=== PATIENT | female | born 1965 | race African-American/Black ===

== ENCOUNTER 2016-09-26 14:12 | Day surgery (SDC) | END 2016-09-26 16:24 | disposition home or self-care (01) | DX: D12.8 Benign neoplasm of rectum (principal); D12.2 Benign neoplasm of ascending colon; D12.0 Benign neoplasm of cecum; K63.5 Polyp of colon; R19.5 Other fecal abnormalities; K64.4 Residual hemorrhoidal skin tags; K64.8 Other hemorrhoids; E78.5 Hyperlipidemia, unspecified; M19.90 Unspecified osteoarthritis, unspecified site; Z88.2 Allergy status to sulfonamides; Z88.0 Allergy status to penicillin; Z88.5 Allergy status to narcotic agent | CPT/HCPCS: 45380; 88305; Z7610 ==

== ENCOUNTER 2016-09-27 10:42 | Emergency (ER) | payer OTHER ==
[~2016-09-27] VITALS: Wt 63.5 kg
[~2016-09-27 10:42] MED LIST: ATOR40TA68 PO; PARO10TA26 PO
[2016-09-27 11:43] LABS: BASOPHILS % 0.3 % (0.0-2.0); EOSINOPHILS # 0.1 10^3/ul (0.0-0.5); EOSINOPHILS % 0.9 % (0.0-7.0); HEMATOCRIT 37.3 % (37.0-47.0); HEMOGLOBIN 12.5 g/dl (12.0-16.0); LYMPHOCYTES % 30.5 % (15.0-51.0); MEAN CORPUSCULAR HEMOGLOBIN 30.6 pg (29.0-33.0); MEAN CORPUSCULAR HGB CONC 33.6 g/dl (32.0-37.0); MEAN CORPUSCULAR VOLUME 91.3 fl (82.0-101.0); MEAN PLATELET VOLUME 7.2 fl (7.4-10.4); MONOCYTE # 0.2 10^3/ul (0.3-0.9); MONOCYTES % 3.7 % (0.0-11.0); NEUTROPHIL # 4.2 10^3/ul (1.6-7.5); NEUTROPHILS % 64.6 % (39.0-77.0); PLATELET COUNT 300 10^3/UL (140-440); RED BLOOD COUNT 4.09 10^6/ul (4.20-5.40); RED CELL DISTRIBUTION WIDTH 13.9 % (11.5-14.5); UNCORRECTED WBC 6.6 10^3/ul (4.8-10.8); WHITE BLOOD COUNT 6.6 10^3/ul (4.8-10.8)
[2016-09-27 11:44] LABS: ADD UMIC YES; URINE BILIRUBIN (Dip) NEGATIVE (NEGATIVE); URINE BLOOD (Dip) 1+ (NEGATIVE); URINE COLOR LT. YELLOW (YELLOW); URINE GLUCOSE (Dip) NEGATIVE (NEGATIVE); URINE KETONES (Dip) NEGATIVE (NEGATIVE); URINE LEUKOCYTE ESTERASE (Dip) NEGATIVE (NEGATIVE); URINE NITRITE (Dip) NEGATIVE (NEGATIVE); URINE TOTAL PROTEIN (Dip) NEGATIVE (NEGATIVE); URINE UROBILINOGEN (Dip) 0.2 E.U./dL (0.1-1.0)
[2016-09-27 11:47] LABS: ALBUMIN 4.6 g/dl (3.3-4.9)
[2016-09-27 11:48] LABS: POTASSIUM 4.3 mmol/L (3.5-5.1)
[2016-09-27 11:49] LABS: CREATININE 0.87 mg/dl (0.44-1.00); INR 0.82; PROTIME 11.3 Sec (12.2-14.2); PT RATIO 0.9
[2016-09-27 11:50] LABS: ALBUMIN/GLOBULIN RATIO 1.35; BILIRUBIN,INDIRECT 0.2 mg/dl (0-1.1); BILIRUBIN,TOTAL 0.2 mg/dl (0.2-1.3); PARTIAL THROMBOPLASTIN TIME 28.6 Sec (25.0-35.0)
[2016-09-27 11:51] LABS: CALCIUM 9.9 mg/dl (8.4-10.2)
[2016-09-27 12:03] LABS: CONDITION 1
--- NOTE | 2016-09-27 12:05 | ERD ---
ER Documentation Chief Complaint Date/Time DATE: 09/27/16 TIME: 12:04 Chief Complaint LOWER GI BLEED THIS MORNING. HX OF COLONOSCOPY YESTERDAY. HPI This is a 51-year-old female who presents to the emergency room for evaluation of rectal bleed. The patient states that she did have a colonoscopy yesterday was sent to the ER by her human resources associate for evaluation. She states that today when she went to the bathroom she noticed dark stool which progressively got security professional. She says that she has no active bleeding at this time. ROS All systems reviewed and are negative except as per history of present illness. Medications Home Meds Reported Medications Atorvastatin* (Atorvastatin*) 40 Mg Tablet, 40 MG PO QHS, #30 TAB 09/26/16 Paroxetine Hcl* (Paxil*) 10 Mg Tablet, 10 MG PO HS, TAB 09/26/16 Allergies Allergies: Coded Allergies: Sulfa (Sulfonamide Antibiotics) (Verified Allergy, Intermediate, 09/26/16) codeine (Verified Allergy, Intermediate, 09/26/16) rashes Penicillins (Verified Allergy, Unknown, 09/26/16) PMhx/Soc History of Surgery: Yes ( x2, c section x1) Anesthesia Reaction: Yes (hard to wake up from gen anesthesia) Hx Neurological Disorder: No Hx Respiratory Disorders: No Hx Cardiac Disorders: Yes (high chol) Hx Psychiatric Problems: Yes (depression, anxiety ( infreq), on med for depression) Hx Alcohol Use: Yes (daily 1-2 glasses wine) Hx Substance Use: Yes (marijuana for insomnia) Hx Tobacco Use: Yes (3 cigs /day) Smoking Status: Current some day smoker Physical Exam Vitals Vital Signs Date Time Temp Pulse Resp B/P Pulse Ox O2 Delivery O2 Flow Rate FiO2 09/27/16 10:51 98.6 80 21 170/91 100 Physical Exam INITIAL VITAL SIGNS: Reviewed by me GENERAL: The patient is well developed and appropriate for usual state of health in no apparent distress HEENT: Pupils equal, round, and reactive to light. EOMI. There is no scleral icterus. NECK: C-spine is soft and supple, there is no meningismus. There is no cervical lymphadenopathy. LUNGS: Clear to auscultation bilaterally. There are no rales, wheezes or rhonchi. HEART: Regular rate and rhythm, no murmurs, clicks, rubs or gallops. ABDOMEN: Soft, non-tender, non-distended. There are bowel sounds in all four quadrants. No rebound or guarding. EXTREMITIES: There is no peripheral cyanosis or edema. No focal swelling or erythema. NEUROLOGICAL: The patient moves all four extremities with 5/5 strength. Cranial nerves II - XII are intact. Normal gait. Alert and oriented SKIN: There is no apparent rash or petechiae. HEME/LYMPHATIC: There is no evidence of excessive bruising or lymphedema. PSYCHIATRIC: The patient does not appear anxious or depressed. Result Diagram: 09/27/16 1124 09/27/16 1124 Results 24 hrs Laboratory Tests Test 09/27/16 11:24 09/27/16 11:34 Activated Partial Thromboplast Time 28.6Sec Alanine Aminotransferase (ALT/SGPT) 27IU/L Albumin 4.6g/dl Albumin/Globulin Ratio 1.35 Alkaline Phosphatase 78IU/L Anion Gap 15 Aspartate Amino Transf (AST/SGOT) 30IU/L Basophils # 0.010^3/ul Basophils % 0.3% Blood Morphology Comment Blood Urea Nitrogen 12mg/dl Calcium Level 9.9mg/dl Carbon Dioxide Level 28mmol/L Chloride Level 108mmol/L Creatinine 0.87mg/dl Direct Bilirubin 0.00mg/dl Eosinophils # 0.110^3/ul Eosinophils % 0.9% Globulin 3.40g/dl Glucose Level 88mg/dl Hematocrit 37.3% Hemoglobin 12.5g/dl INR International Normalized Ratio 0.82 Indirect Bilirubin 0.2mg/dl Lipase 65U/L Lymphocytes # 2.010^3/ul Lymphocytes % 30.5% Mean Corpuscular Hemoglobin 30.6pg Mean Corpuscular Hemoglobin Concent 33.6g/dl Mean Corpuscular Volume 91.3fl Mean Platelet Volume 7.2fl Monocytes # 0.210^3/ul Monocytes % 3.7% Neutrophils # 4.210^3/ul Neutrophils % 64.6% Nucleated Red Blood Cells # 0.010^3/ul Nucleated Red Blood Cells % 0.0/100WBC Platelet Count 56870^3/UL Potassium Level 4.3mmol/L Prothrombin Time 11.3Sec Prothrombin Time Ratio 0.9 Red Blood Count 4.0910^6/ul Red Cell Distribution Width 13.9% Sodium Level 147mmol/L Total Bilirubin 0.2mg/dl Total Protein 8.0g/dl White Blood Count 6.610^3/ul Urine Bilirubin NEGATIVE Urine Clarity CLEAR Urine Color LT. YELLOW Urine Glucose NEGATIVE% Urine Hemoglobin 1+ Urine Ketones NEGATIVE Urine Leukocyte Esterase NEGATIVE Urine Microscopic RBC Pending Urine Microscopic WBC Pending Urine Nitrite NEGATIVE Urine Specific [place] 1.015 Urine Total Protein NEGATIVE Urine Urobilinogen 0.2 E.U./dL Urine pH 6.5 Procedures/MDM This 51-year-old female presents to the emergency room for evaluation of rectal bleeding. She did have a colonoscopy with the removal of the polyp yesterday. Her GI physician Dr. Sinha is at bedside and he agrees that the patient has a mild residual bleeding. The patient's hemoglobin has come back at 12.5. She has no active bleeding at this time, she is hemodynamically stable and okay for discharge at this time. Smoking Cessation Therapy: Pt. was lectured for greater than 3 minutes on the health risks of continued smoking and the benefits of cessation. Departure Diagnosis: Primary Impression: Rectal hemorrhage Additional Impressions: Tobacco abuse Tobacco abuse counseling Condition: DAVID Jernigan DO Sep 27, 2016 12:05
[2016-09-27 12:11] LABS: SQUAMOUS EPITHELIAL CELL,UR FEW; URINE RBCS 0-2 /HPF (0)
== END 2016-09-27 12:27 | disposition home or self-care (01) ==
LOC: E/R 10:42
DX: K62.5 Hemorrhage of anus and rectum (principal); F17.210 Nicotine dependence, cigarettes, uncomplicated; Z71.6 Tobacco abuse counseling
CPT/HCPCS: 36415; 80053; 81001; 81003; 83690; 85025; 85610; 85730; Z7502; 99283